=== PATIENT | female | born 1970 | race Caucasian/White ===

== ENCOUNTER 2017-03-01 04:06 | Inpatient (IN) | payer BC ==
[2017-03-01] VITALS (10 sets, daily range): BP systolic 94–113; BP diastolic 62–79
[~2017-03-01] VITALS: Ht 170.2 cm; Wt 83.4 kg
[~2017-03-01 04:06] MED LIST: AMOXICILLIN/CL875 MG PO; AMOXICILLIN500 MG PO; AUGMENTIN875TAB PO; CEFTIN500 MG PO; CEPHALEXIN500 MG OR; DIFLUCAN150 MG PO; DOXYCYCL HYC100 MG PO; FERROUS SULF325 M1 PO; FLONASE NASAL50 MCG; GLYBURIDE2.5 M1 PO; IRON325 MG PO; MEDDOSEPAK PO; MULTIVITAMI1 PO; MULTIVITAMI9 PO; NO; OBTREX DHA PO; PREDNISONE20 MG PO; PRENATA3 PO; PRENATA6 OR; ROCEPHIN 500 M500 MG IM; TET/DIP TOX1 ML IM; TRAMADOL HCL50 MG PO; TUBERSOL5 MG/0.1 M ID; ULTRAM50 MG PO; ZITHROMAX500 MG PO; ZOLOFT25 MG PO
[2017-03-01] MEDS ORDERED: PAXIL30 MG PO (04:16)
[2017-03-01] MEDS ORDERED: MELOXICAM7.5 MG PO (04:16)
[2017-03-01] MEDS ORDERED: HYDROCO/APAP1 TA9 PO (04:16)
[2017-03-01] MEDS ORDERED: FLEXERIL5 M1 PO (04:17)
--- NOTE | 2017-03-01 04:50 | NUR ---
C/O CONSTANT DULL/STABBING PAIN TO SUPRAPUBIC AREA THAT RADIATES TO LOWER BACK, RATES IT AT 9/10, MEDICATED WITH MORPHINE IV, PROTONIX, IVF INFUSING PER MD ORDERS, PT MOANING, SOME GUARDING AND FACIAL GRIMACE NOTED, MILD DISTRESS NOTED, RESP ARE EVEN AND UNLABORED. WILL CONTINUE TO REASSESS.
[2017-03-01 05:02] LABS: URINE BILIRUBIN - DIPSTICK NEGATIVE (NEGATIVE); URINE BLOOD DIPSTICK NEGATIVE (NEGATIVE); URINE COLOR YELLOW; URINE GLUCOSE - DIPSTICK NEGATIVE (NEGATIVE); URINE KETONE >=80 mg/dL (NEGATIVE); URINE LEUK ESTERASE NEGATIVE (NEGATIVE); URINE NITRITE - DIPSTICK NEGATIVE (Negative); URINE PH 5.5 (4.5-8.0); URINE PROTEIN - DIPSTICK NEGATIVE (NEG-TRACE); URINE SPECIFIC GRAVITY 1.015; URINE UROBILINOGEN - DIPSTICK 0.2 E.U./dL (0.2)
[2017-03-01 05:03] LABS: URINE CLARITY CLEAR
[2017-03-01 05:08] LABS: HEMATOCRIT 39.8 % (37.0-47.0); HEMOGLOBIN 13.6 g/dl (12.0-16.0); IMMATURE GRANULOCYTES 0.3 % (0.0-1.0); MEAN CELL VOLUME 94.5 fL CALC (80.0-100.0); MEAN CORPUSCULAR HGB 32.3 pG CALC (26.0-32.0); MEAN CORPUSCULAR HGB CONC 34.2 g/L CALC (32.0-36.0); NEUT# 8.37 thou/uL (2.00-7.15); RED BLOOD COUNT 4.21 mill/uL (4.20-5.60); RED CELL DISTRI WIDTH 12.3 % (11.5-15.5)
[2017-03-01 05:24] LABS: ALBUMIN 4.4 g/dL (3.2-5.0); ALKALINE PHOSPHATASE 50 u/l (38-126); AMYLASE 40 u/l (30-110); ANION GAP 14 (6-22 (CALC)); BILIRUBIN, TOTAL 0.6 mg/dL (0.0-1.4); BUN 13 mg/dL (7-17); BUN/CREATININE RATIO 22 (12-20 (CALC)); CALCIUM 9.1 mg/dL (8.4-10.2); CARBON DIOXIDE 23 mmol/l (22-30); CHLORIDE 108 mmol/l (95-108); CREATININE 0.6 mg/dL (0.5-1.0); GFR > 60 ML/MIN (>=60 (CALC)); GFR FOR AFR.AMER. > 60 ML/MIN (>=60 (CALC)); GLUCOSE 151 mg/dL (65-105); LIPASE 53 u/l (23-300); POTASSIUM 4.2 mmol/l (3.5-5.1); SGOT/AST 24 u/l (14-36); SGPT/ALT 40 u/l (9-52); SODIUM 140 mmol/l (137-146); TOTAL PROTEIN 7.1 g/dL (6.3-8.2)
--- NOTE | 2017-03-01 06:00 | NUR ---
PT RETURNED FROM RADIOLOGY, STATES PAIN IS AT 7/10, SUPRAPUBIC, RADIATES TO LOWER BACK. REQUESTING MORE PAIN MED, NOTIFIED MD. NO MOANING OR GUARDING, SOME FACIAL GRIMACE NOTED AT THIS TIME.
--- NOTE | 2017-03-01 06:40 | NUR ---
PT CONTINUES C/O PAIN TO LOWER ABD, RATES IT AT 11/01, WILL NOTIFY MD, BP 90/56, NO DISTRESS NOTED, APPEARS TO BE RESTING COMFORTABLY.
--- NOTE | 2017-03-01 06:54 | NUR ---
PROVIDED REPORT TO ÁLVARO COLEMAN.
--- NOTE | 2017-03-01 07:05 | NUR ---
SBAR PRINTED TO FLOOR
--- NOTE | 2017-03-01 07:32 | NUR ---
PATIENT SITTING UPRIGHT IN STRETCHER, PATIENT REPORTS CONTINUED 9/10 PAIN WITH NO RELIEF FROM THE TORADOL. PATIENT AWARE OF NPO STATUS AND PENDING TRANSFER. WILL CONTINUE TO MONITOR.
--- NOTE | 2017-03-01 08:00 | NUR ---
PATIENT REPORT GIVEN TO ÁLVARO LAWTON.
--- NOTE | 2017-03-01 08:05 | NUR ---
PATIENT MEDICATED WITH 1 MG OF MORPHINE, IV. PATIENT REPORT PAIN NOW 6/10 AND HAS TAKEN THE EDGE OFF.
--- NOTE | 2017-03-01 08:10 | NUR ---
FROM ER VIA WHEELCHAIR ACCOMPANIED BY NOREEN REA. AMBULATED TO BED WITH STEADY GAIT. RESPS EVEN AND UNLABORED ON ROOM AIR. # 20 LAC INFUSING WITHOUT DIFFICULTY, SITE APPEARS HEALTHY. REPORTS ABD PAIN 6/10 AFTER MEDICATION. ORIENTED TO ROOM AND CALL SYSTEM. SAFETY PRECAUTIONS REINFORCED. BED IN LOWEST POSITION WITH WHEELS LOCKED. CALL LIGHT WITHIN REACH. ENCOURAGED PT TO CALL FOR ANY NEEDS.
--- NOTE | 2017-03-01 08:20 | NUR ---
Admission Note Report Given to: ÁLVARO LAWTON Transported by: Wheelchair X Stretcher Transported with: X Nurse Transporter X Patent IV O2 Care Connector
--- NOTE | 2017-03-01 10:25 | NUR ---
DR MONTANEZ IN WITH PT, NEW ORDERS RECEIVED.
--- NOTE | 2017-03-01 10:55 | NUR ---
PHONE CALL FROM DR TORRES, NEW ORDERS RECEIVED.
--- NOTE | 2017-03-01 11:14 | NUR ---
MEDICATED WITH MORPHINE 1MG FOR C/O 8/10 ABD PAIN.
--- NOTE | 2017-03-01 11:48 | NUR ---
MEDICATED WITH ZOFRAN 4MG IVP FOR C/O NAUSEA. RESPS EVEN AND UNLABORED ON ROOM AIR. #20 LAC INFUSING WITHOUT DIFFICULTY, SITE APPEARS HEALTHY. CALL LIGHT DEL BOOKER. WILL CONTINUE TO MONITOR.
--- NOTE | 2017-03-01 12:15 | NUR ---
TO OR VIA STRETCHER ACCOMPANIED BY DIA REA.
--- NOTE | 2017-03-01 14:40 | NUR ---
FROM OR VIA STRETCHER ACCOMPANIED BY SHERMAN RN. TRANSFERRED TO BED WITH STAND BY ASSIST. RESPS EVEN AND UNLABORED ON ROOM AIR. DRESSINGS TO ABD X2 WITH SCANT AMT RED DRAINAGE. HYPOACTIVE BOWEL SOUNDS NOTED. SCD'S TO BILAT LOWER EXTREMITIES. #20 LAC INFUSING WITHOUT DIFFICULTY, SITE APPEARS HEALTHY. ORIENTED TO ROOM AND CALL SYSTEM. ICE CHIPS PROVIDED. SAFETY PRECAUTIONS REINFORCED. BED IN LOWEST POSITION WITH WHEELS LOCKED. CALL LIGHT WITHIN REACH. ENCOURAGED PT TO CALL FOR ANY NEEDS.
--- NOTE | 2017-03-01 15:30 | NUR ---
RESTING IN SEMI FOWLERS. RESPS EVEN AND UNLABORED ON ROOM AIR. MEDICATED WITH DILAUDID 1MG IVP FOR C/O 8/10 ABD PAIN. TOLERATING ICE CHIPS WITHOUT C/O NAUSEA. INSTRUCTED TO USE PILLOW TO BRACE ABD WITH MOVEMENT, DEEP BREATHING. CALL LIGHT WITHIN REACH.
--- NOTE | 2017-03-01 20:00 | NUR ---
PT AMBULATING DOWN HALLS WITH A STEADY GAIT AND ATTEMPTING TO DO LUNGES;PT EDUCATED ON THE IMPORTANCE OF AMBULATING BUT TO TAKE IT SLOW,LUNGES ARE NO NECESSARY AT THIS TIME
--- NOTE | 2017-03-01 21:15 | NUR ---
PT RESTING IN SUPINE POSITION;CONTACT PRECAUTIONS IN PLACE FOR HX OF MRSA;PT COMPLAINS OF ABDOMINAL PAIN RATING 8/10 ON THE PAIN SCALE AND REQUESTS PAIN MEDICATION;PT REFUSES SCHEDULED TRAZODONE;PT MEDICATED WITH PRN DILAUDID 1MG,WILL MONITOR FOR EFFECT;ASSESSMENT COMPLETED;DRESSING TO ABDOMEN CDI;#20G TO LAC INFUSING LR @ 100ML/HR;RESPIRATIONS EVEN AND UNLABORED ON RA;I.S. AT BEDSIDE AND GOAL SET TO 2000,PT DEMONSTRATED USE AND IS EDUCATED TO USE X10 PER HOUR;SCD'S IN PLACE;PT VOIDED 300CC OF CLEAR/YELLOW URINE AND RE-POSITIONED INTO BED;SAFETY PRECAUTIONS REINFORCED;PT EDUCATED TO CALL FOR ASSISTANCE IF NEEDED;CALL LIGHT IN REACH;WILL CONTINUE TO MONITOR
--- NOTE | 2017-03-01 22:00 | NUR ---
PT AMBULATED TO NURSES STATION;PT HOLDING HER CHEST AND STATES "MY CHEST IS KILLING ME,ITS SHARP";PT ASSISTED BACK TO ROOM;VS OBTAINED BP 121/73; RT TO BE NOTIFED FOR AN EKG;WILL CONTINUE TO MONITOR
--- NOTE | 2017-03-01 22:15 | NUR ---
EKG COMPLETED BY RT BHARGAV SHOWING NORMAL SINUS RHYTHM;PT AND WRITTER DISCUSSED THE PAIN BEING R/T GAS AND PT VERBALIZES UNDERSTANDING STATING "THEY TOLD ME ABOUT THIS";PT VOICES NO OTHER CONCERNS AT THIS TIME;CALL LIGHT IN REACH;WILL CONTINUE TO MONITOR
--- NOTE | 2017-03-02 | NUR ---
PT RESTING IN SUPINE POSITION WITH SPOUSE AT BEDSIDE;NO COMPLAINTS OF PAIN OR CONCERNS VOICED AT THIS TIME;RESPIRATIONS EVEN AND UNLABORED ON RA;CALL LIGHT IN REACH;WILL CONTINUE TO MONITOR
--- NOTE | 2017-03-02 00:10 | NUR ---
PT REQUESTS PAIN MEDICATION FOR ABDOMINAL PAIN RATING 6/10 ON THE PAIN SCALE;PT REPORTS THAT HER GAS PAINS ARE NOW STARTING TO PASS;PT MEDICATED WITH LORTAB 5/325MG;IV FLUIDS INFUSING WELL TO RAC;SCD'S IN PLACE;PT VOICES NO OTHER COMPLAINTS OR NEEDS AT THIS TIME;CALL LIGHT IN REACH;WILL CONTINUE TO MONITOR
[2017-03-02 04:44] VITALS: BP 115/77
--- NOTE | 2017-03-02 04:45 | NUR ---
PT VOIDED 500CC OF CLEAR/YELLOW URINE;VS OBTAINED;CONTACT PRECAUTIONS IN PLACE FOR HX OF MRSA;TELE MONITOR NOTED;IV FLUIDS INFUSING WELL TO LAC;PT DENIES ANY PAIN AT THIS TIME;RESPIRATIONS EVEN AND UNLABORED ON RA;I.S. AT BEDSIDE;FRESH WATER PROVIDED;CALL LIGHT IN REACH;WILL CONTINUE TO MONITOR
[2017-03-02 05:34] LABS: HEMATOCRIT 33.1 % (37.0-47.0); HEMOGLOBIN 11.1 g/dl (12.0-16.0); IMMATURE GRANULOCYTES 0.3 % (0.0-1.0); MEAN CELL VOLUME 96.2 fL CALC (80.0-100.0); MEAN CORPUSCULAR HGB 32.3 pG CALC (26.0-32.0); MEAN CORPUSCULAR HGB CONC 33.5 g/L CALC (32.0-36.0); NEUT# 4.95 thou/uL (2.00-7.15); RED BLOOD COUNT 3.44 mill/uL (4.20-5.60); RED CELL DISTRI WIDTH 12.7 % (11.5-15.5)
[2017-03-02 05:54] LABS: ANION GAP 11 (6-22 (CALC)); BUN 6 mg/dL (7-17); BUN/CREATININE RATIO 10 (12-20 (CALC)); CALCIUM 8.6 mg/dL (8.4-10.2); CARBON DIOXIDE 24 mmol/l (22-30); CHLORIDE 109 mmol/l (95-108); CREATININE 0.6 mg/dL (0.5-1.0); GFR > 60 ML/MIN (>=60 (CALC)); GFR FOR AFR.AMER. > 60 ML/MIN (>=60 (CALC)); GLUCOSE 90 mg/dL (65-105); MAGNESIUM 1.8 mg/dL (1.6-2.3); POTASSIUM 4.1 mmol/l (3.5-5.1); SODIUM 140 mmol/l (137-146)
--- NOTE | 2017-03-02 06:00 | NUR ---
PT COMPLAINS OF ABDOMINAL PAIN RATING 7/10 ON THE PAIN SCALE AND REQUESTS PAIN MEDICATION;PT MEDICATED WITH PRN LORTAB 5/325MG PO AT THIS TIME;WILL CONTINUE TO MONITOR FOR EFFECT
--- NOTE | 2017-03-02 07:00 | NUR ---
RECEIVED BEDSIDE REPORT FROM LEXI EUGENE. RESTING IN BED WITH EYES CLOSED, AWAKENS EASILY. RESPS EVEN AND UNLABORED ON ROOM AIR, TELE MONITOR IN PLACE. #20 LAC INFUSING WITHOUT DIFFICULTY, SITE APPEARS HEALTHY. SCD'S TO BILAT LOWER EXTREMITIES. REPORTS PAIN IS TOLERABLE AT THIS TIME. PLAN OF CARE DISCUSSED. SAFETY PRECAUTIONS REINFORCED. BED IN LOWEST POSITION WITH WHEELS LOCKED. CALL LIGHT WITHIN REACH. ENCOURAGED PT TO CALL FOR ANY NEEDS.
[2017-03-02 07:46] VITALS: BP 109/73
--- NOTE | 2017-03-02 09:15 | NUR ---
DR MONTANEZ IN WITH PT, NEW ORDERS RECEIVED.
--- NOTE | 2017-03-02 10:30 | NUR ---
RESTING IN BED ON RIGHT SIDE. RESPS EVEN AND UNLABORED ON ROOM AIR, TELE MONITOR IN PLACE. MEDICATED WITH PERCOCET PO FOR C/O 7/10 ABD PAIN. CALL LIGHT WITHIN REACH. WILL CONTINUE TO MONITOR.
[2017-03-02 11:17] VITALS: BP 118/82
[2017-03-02] MEDS ORDERED: OXYCODONE/ACETA1 TA8 PO (12:11)
--- NOTE | 2017-03-02 12:17 | NUR ---
AMBULATING IN HALLWAY WITH STEADY GAIT. TOLERATING WITHOUT DIFFICULTY.
--- NOTE | 2017-03-02 12:55 | NUR ---
Discharge instructions given. Patient verbalizes understanding of same. Discharged in stable condition via Wheelchair to Home with family. All belongings sent with pt.
== END 2017-03-02 12:50 | disposition home or self-care (01) | DRG 343 ==
LOC: ED 04:06 → ED-I 06:54 → ED 07:05 → MS2 07:06
PROVIDERS: Emergency Medicine; Nurse Practitioner Family; ADMIT Internal Medicine; ATTEND Internal Medicine
PROC: 0DTJ4ZZ Resection of Appendix, Percutaneous Endoscopic Approach (ICD-10-PCS; principal; 2017-03-01)
DX: K35.80 Unspecified acute appendicitis (principal); G89.4 Chronic pain syndrome; M19.011 Primary osteoarthritis, right shoulder; M79.7 Fibromyalgia; M50.321 Other cervical disc degeneration at C4-C5 level; Z87.891 Personal history of nicotine dependence; Z79.891 Long term (current) use of opiate analgesic
CPT/HCPCS: J1100; Q9967; S0164